=== PATIENT | male | born 1960 | race Caucasian/White ===

== ENCOUNTER 2016-11-11 06:19 | Emergency (ER) | payer MEDICAID ==
--- NOTE | 2016-11-11 06:58 | EDM.PDOC ---
ED HPI GENERAL MEDICAL PROBLEM - General Chief Complaint: General Stated Complaint: THROAT HURTS Time Seen by Provider: 11/11/16 06:40 Source of Information: Reports: Patient, RN, Significant Other - History of Present Illness INITIAL COMMENTS - FREE TEXT/NARRATIVE: 55 yr male presents with body aches, back ache, sore throat, some nausea at 2am and cough and steadily getting worse since 11pm. He was sick about 2 weeks ago and thought he was better, did go out fishing yesterday. Trying to drink extra fluids. Had Robitussin and cough drops. Had some ear pain. Onset: Today Onset Date: 11/10/16 Onset Time: 23:00 Improves with: Reports: Medication, Rest Associated Symptoms: Reports: Cough, Weakness Treatments WAITRESS: Reports: Other Medication(s) Back Pain Score (Numeric/FACES): 9 - Related Data Allergies Allergy/AdvReac Type Severity Reaction Status Date / Time No Known Allergies Allergy Verified 06/27/15 03:02 Home Meds: Home Meds Methocarbamol [Robaxin] 500 mg PO ASDIRECTED PRN 05/28/13 [History] Pantoprazole [Pantoprazole Sodium] 20 mg PO DAILY 05/28/13 [History] Sucralfate [Carafate] 1 gram PO DAILY 05/28/13 [History] Cyanocobalamin (Vitamin B-12) [Vitamin B-12] 2,500 mcg PO DAILY 05/19/15 [ History] Celecoxib [CeleBREX] 50 mg PO DAILY 07/01/15 [History] Hydrocodone/Acetaminophen [Hydrocodone-Acetaminophen 5-325] 5 - 325 mg PO ASDIRECTED PRN 07/01/15 [History] Ciprofloxacin [Take Home: Ciprofloxacin 500 MG, 2 Tab Pack] 500 mg PO BID [History] metroNIDAZOLE [Flagyl] 500 mg PO BID 02/09/16 [History] Past Medical History HEENT History: Reports: Allergic Rhinitis, Impaired Vision, Otitis Media Cardiovascular History: Reports: None Respiratory History: Reports: None, Bronchitis, Recurrent Other Respiratory History: presently sob Gastrointestinal History: Reports: Bowel Obstruction, Diverticulosis, GERD Genitourinary History: Reports: Renal Calculus, Other (See Below) Other Genitourinary History: frequent urination Musculoskeletal History: Reports: Back Pain, Chronic, Neck Pain, Chronic, Osteoarthritis Neurological History: Reports: None Psychiatric History: Reports: Anxiety, Depression Immunologic History: Reports: None Oncologic (Cancer) History: Reports: None - Infectious Disease History Infectious Disease History: Reports: Chicken Pox, Mumps - Past Surgical History Musculoskeletal Surgical History: Reports: Carpal Tunnel, Other (See Below) Social & Family History - Family History Family Medical History: Noncontributory - Tobacco Use Smoking Status *Q: Never Smoker Years of Tobacco use: 5 Packs/Tins Daily: 1 Used Tobacco, but Quit: No Month Tobacco Last Used: 15 years Second Hand Smoke Exposure: No - Alcohol Use Days Per Week of Alcohol Use: 5 Number of Drinks Per Day: 2 Total Drinks Per Week: 10 - Recreational Drug Use Recreational Drug Use: Yes Drug Use in Last 12 Months: Yes Recreational Drug Type: Reports: Marijuana/Hashish Recreational Drug Use Frequency: Weekly ED ROS GENERAL - Review of Systems Review Of Systems: See Below Constitutional: Reports: Weakness, Fatigue Respiratory: Reports: Cough Cardiovascular: Reports: Lightheadedness GI/Abdominal: Reports: Nausea Musculoskeletal: Reports: Back Pain ED EXAM, GENERAL - Physical Exam Exam: See Below Exam Limited By: No Limitations General Appearance: Alert, WD/WN, No Apparent Distress Throat/Mouth: Normal Inspection Head: Normocephalic Neck: Normal Inspection Respiratory/Chest: No Respiratory Distress, Lungs Clear, Normal Breath Sounds Cardiovascular: Regular Rate, Rhythm GI/Abdominal: Soft, No Distention Extremities: Other (ambulatory) Neurological: Alert, Oriented, Normal Cognition Skin Exam: Warm, Dry, Intact Course - Vital Signs Last Recorded V/S: Last Vital Signs Temp 97.9 F 11/11/16 07:16 Pulse 73 11/11/16 07:16 Resp 16 11/11/16 07:16 BP 132/87 11/11/16 07:16 Pulse Ox 99 11/11/16 07:16 - Orders/Labs/Meds Labs: Laboratory Tests 11/11/16 11/11/16 11/11/16 Range/Units 07:00 07:00 07:00 WBC 7.1 (4.0-11.0) K/uL RBC 4.83 (4.50-6.50) M/uL Hgb 15.9 (13.0-18.0) g/dL Hct 44.3 (40.0-54.0) % MCV 92 (76-96) fL MCH 32.9 H (27.0-32.0) pg MCHC 35.9 H (31.0-35.0) g/dL RDW 12.6 (11.0-16.0) % Plt Count 198 D (150-400) K/uL MPV 9.8 (6.0-10.0) fL Neut % (Auto) 67.5 (45.0-70.0) % Lymph % (Auto) 22.9 (20.0-40.0) % [place] % (Auto) 7.9 (3.0-10.0) % Eos % (Auto) 1.4 (1.0-5.0) % Baso % (Auto) 0.3 (0.0-0.5) % Neut # (Auto) 4.78 (2.00-7.50) K/uL Lymph # (Auto) 1.62 (1.50-4.00) K/uL [place] # (Auto) 0.56 (0.20-0.80) K/uL Eos # (Auto) 0.10 (0.04-0.40) K/uL Baso # (Auto) 0.02 (0.02-0.10) K/uL Sodium 139 (136-145) mmol/L Potassium 3.6 (3.5-5.1) mmol/L Chloride 104 (98-107) mmol/L Carbon Dioxide 23.5 D (21.0-32.0) mmol/L Anion Gap 15.1 H (5.0-15.0) mmol/L BUN 14 D (8-26) mg/dL Creatinine 0.79 (0.70-1.30) mg/dL Est Cr Clr Drug Dosing TNP Estimated GFR (MDRD) > 60 (>60) MLS/MIN BUN/Creatinine Ratio 17.7 (6-25) Glucose 106 H (74-100) mg/dL Calcium 9.3 (8.5-10.1) mg/dL Total Bilirubin 0.8 (0.0-1.0) mg/dL AST 19 (15-37) U/L ALT 30 (12-78) U/L Alkaline Phosphatase 67 (46-116) U/L Total Protein 7.3 (6.4-8.2) g/dL Albumin 4.0 (3.4-5.0) g/dL Globulin 3.3 (2.2-4.2) g/dL Albumin/Globulin Ratio 1.2 (0.8-2.0) Urine Color Urine Appearance (CLEAR) Urine pH (5.0-8.0) Ur Specific [place] (1.003-1.030) Urine Protein (NEGATIVE) mg/dL Urine Glucose (UA) (NEGATIVE) mg/dL Urine Ketones (NEGATIVE) mg/dL Urine Occult Blood (NEGATIVE) Urine Nitrite (NEGATIVE) Urine Bilirubin (NEGATIVE) Urine Urobilinogen (0.2-1.0) E.U./dL Ur Leukocyte Esterase (NEGATIVE) Urine RBC /HPF Urine WBC /HPF Monoscreen Negative (NEGATIVE) 11/11/16 Range/Units 07:00 WBC (4.0-11.0) K/uL RBC (4.50-6.50) M/uL Hgb (13.0-18.0) g/dL Hct (40.0-54.0) % MCV (76-96) fL MCH (27.0-32.0) pg MCHC (31.0-35.0) g/dL RDW (11.0-16.0) % Plt Count (150-400) K/uL MPV (6.0-10.0) fL Neut % (Auto) (45.0-70.0) % Lymph % (Auto) (20.0-40.0) % [place] % (Auto) (3.0-10.0) % Eos % (Auto) (1.0-5.0) % Baso % (Auto) (0.0-0.5) % Neut # (Auto) (2.00-7.50) K/uL Lymph # (Auto) (1.50-4.00) K/uL [place] # (Auto) (0.20-0.80) K/uL Eos # (Auto) (0.04-0.40) K/uL Baso # (Auto) (0.02-0.10) K/uL Sodium (136-145) mmol/L Potassium (3.5-5.1) mmol/L Chloride (98-107) mmol/L Carbon Dioxide (21.0-32.0) mmol/L Anion Gap (5.0-15.0) mmol/L BUN (8-26) mg/dL Creatinine (0.70-1.30) mg/dL Est Cr Clr Drug Dosing Estimated GFR (MDRD) (>60) MLS/MIN BUN/Creatinine Ratio (6-25) Glucose (74-100) mg/dL Calcium (8.5-10.1) mg/dL Total Bilirubin (0.0-1.0) mg/dL AST (15-37) U/L ALT (12-78) U/L Alkaline Phosphatase (46-116) U/L Total Protein (6.4-8.2) g/dL Albumin (3.4-5.0) g/dL Globulin (2.2-4.2) g/dL Albumin/Globulin Ratio (0.8-2.0) Urine Color Yellow Urine Appearance Clear (CLEAR) Urine pH 7.0 (5.0-8.0) Ur Specific [place] 1.020 (1.003-1.030) Urine Protein Negative (NEGATIVE) mg/dL Urine Glucose (UA) Negative (NEGATIVE) mg/dL Urine Ketones Negative (NEGATIVE) mg/dL Urine Occult Blood Negative (NEGATIVE) Urine Nitrite Negative (NEGATIVE) Urine Bilirubin Negative (NEGATIVE) Urine Urobilinogen 0.2 (0.2-1.0) E.U./dL Ur Leukocyte Esterase Negative (NEGATIVE) Urine RBC Not seen /HPF Urine WBC 0-5 H /HPF Monoscreen (NEGATIVE) Meds: Medications Discontinued Medications Generic Name Dose Route Start Last Admin Trade Name [place] PRN Reason Stop Dose Admin Tramadol HCl Confirm 11/11/16 07:11 11/11/16 07:10 Ultram Administered 11/11/16 07:12 50 mg Dose Administration 50 mg .ROUTE .STK-MED ONE - Re-Assessments/Exams Free Text/Narrative Re-Assessment/Exam: 11/11/16 08:11 Lab results negative for [place], strep and influenza. Rest today and increase fluids. Continue medications as at home. Continue with Robitussen for cough. Pt to be off work today. Rx to be off work. Departure - Departure Time of Disposition: 08:10 Disposition: Home, Self-Care 01 Condition: Good Clinical Impression: Viral pharyngitis - Discharge Information Instructions: Low Back Sprain With Rehab-Sports[facility], Cough, Adult, Pharyngitis, [id number] Referrals: PCP,None [Primary Care Provider] - Forms: ED Department Discharge Care Plan Goals: Get plenty of rest and drink plenty of fluids. Return to clinic if symptoms don' t improve in the next couple of days.
[2016-11-11 06:59] VITALS: BP 132/87
[2016-11-11] MEDS ORDERED: traMADol 50 MG Tab ONE (07:11)
== END 2016-11-11 08:16 | disposition home or self-care (01) ==
LOC: LB.ED 06:19
DX: J02.8 Acute pharyngitis due to other specified organisms (principal); B97.89 Other viral agents as the cause of diseases classified elsewhere; K21.9 Gastro-esophageal reflux disease without esophagitis; F32.9 Major depressive disorder, single episode, unspecified; M19.90 Unspecified osteoarthritis, unspecified site; Z87.442 Personal history of urinary calculi; Z98.890 Other specified postprocedural states; Z79.899 Other long term (current) drug therapy
CPT/HCPCS: 36415; 80053; 81001; 85025; 86308; 87430; 87804; 99283; A9270

== ENCOUNTER 2017-04-06 11:39 | Emergency (ER) | payer MEDICAID | END 2017-04-06 11:50 | disposition other institution (70) | LOC: LB.ED 11:39 | DX: Z13.9 Encounter for screening, unspecified (principal) ==

== ENCOUNTER 2018-05-19 10:47 | Day surgery (SDC) | payer OTHER ==
[2018-05-19] MEDS: Sodium Chloride 0.9% 1,000 ML IV SCH (11:10)
[2018-05-19] MEDS ORDERED: Propofol 200 MG/20 ML SDV ONE (12:40)
[2018-05-19 14:18] VITALS: BP 126/63
--- NOTE | 2018-05-19 16:51 | OR ---
DATE OF OPERATION: 05/19/2018 PREOPERATIVE DIAGNOSIS: Bloating and early satiety. POSTOPERATIVE DIAGNOSIS: Bloating and early satiety. PROCEDURE: EGD with biopsy. ANESTHESIA: MAC. ESTIMATED BLOOD LOSS: Minimal. COMPLICATIONS: None. INDICATION FOR THE PROCEDURE: The patient is a 57-year-old male who has had a long history of early satiety and bloating. Recently, he has noticed increased belching. The patient does take pantoprazole and sucralfate daily. Last EGD was 2 to 3 years ago with no acute findings at that time. The patient is here today for repeat EGD. DESCRIPTION OF PROCEDURE: Informed consent was obtained from the patient. The patient was taken to the OR and placed on table in left lateral decubitus position. Monitored anesthesia care was administered. Esophagogastroscope was advanced through the mouth and to the level of the second portion of the duodenum. The second portion of the duodenum was normal. Duodenal bulb did have some mild inflammation. The gastric antrum did show some mild gastritis. Biopsy was taken to check for H pylori. Retroflexion performed in the stomach was unremarkable. Gastric cardia was unremarkable. Remainder of the stomach was unremarkable. The scope was then withdrawn into the esophagus. Distal esophagus appeared normal. The scope was then withdrawn. FINDINGS: Mild gastritis and duodenitis. RECOMMENDATIONS: Would recommend continued medical management. Will follow up on biopsies for H pylori. SYLVIA/ERIS /[id number]
== END 2018-05-19 13:50 | disposition home or self-care (01) ==
LOC: LB.SDS 10:47
PROVIDERS: ATTEND Surgery
DX: K29.70 Gastritis, unspecified, without bleeding (principal); K29.80 Duodenitis without bleeding; K31.89 Other diseases of stomach and duodenum; K21.9 Gastro-esophageal reflux disease without esophagitis; Z79.899 Other long term (current) drug therapy
CPT/HCPCS: 43239; 43246; 88305; J2704; J7030

== ENCOUNTER → 2019-01-24 | Outpatient (CLI) | payer OTHER ==
--- NOTE | 2019-01-25 07:40 | CR ---
Date of Service: 01/24/19 Clinical Data: Pain in left foot LEFT FOOT: No acute fracture or dislocation. There are mild osteoarthritic changes involving multiple joints. No lytic or blastic bone lesions. [id number] [facility]
== END ==
LOC: LB.CLINIC 10:15 → LB.DI 15:01
PROVIDERS: ATTEND Family Medicine
DX: M79.672 Pain in left foot (principal); M19.072 Primary osteoarthritis, left ankle and foot
CPT/HCPCS: 73630-LT

== ENCOUNTER 2022-11-19 17:27 | Emergency (ER) | payer BC ==
[2022-11-19] MEDS ORDERED: Morphine 4 MG/ML VIAL IM ONE (17:41)
[2022-11-19] MEDS ORDERED: Ketorolac 60 MG/2 ML SDV IM ONE (18:21)
[2022-11-19] MEDS ORDERED: Ketorolac 60 MG/2 ML SDV ONE (18:21)
[2022-11-19] MEDS ORDERED: Bacitracin Oint 1 GM U/D Packet TOP ONE (18:26)
[2022-11-19] MEDS ORDERED: Ibuprofen 400 MG Tab ONE (19:30)
[2022-11-19] MEDS ORDERED: Acetaminophen/HYDROcodone 325-5 MG Tab ONE (19:30)
[2022-11-19 21:05] VITALS: BP 142/85; PULSE 67
== END 2022-11-19 19:40 | disposition home or self-care (01) ==
LOC: LB.ED 17:27
DX: S52.531A Colles' fracture of right radius, initial encounter for closed fracture (principal); K21.9 Gastro-esophageal reflux disease without esophagitis; Z87.891 Personal history of nicotine dependence; Z79.899 Other long term (current) drug therapy; W18.30XA Fall on same level, unspecified, initial encounter
CPT/HCPCS: 73110-RT; 96372; 99283; A9270-GY; J1885; J2270

== ENCOUNTER 2023-12-19 16:59 | Emergency (ER) | payer MEDICARE ==
[2023-12-19 17:56] LABS: BASOPHILS ABSOLUTE AUTO 0.02 K/uL (0.02-0.10); BASOPHILS PERCENT AUTO 0.3 % (0.0-0.5); EOSINOPHILS ABSOLUTE AUTO 0.15 K/uL (0.04-0.40); EOSINOPHILS PERCENT AUTO 2.3 % (1.0-5.0); HEMATOCRIT 43.3 % (40.0-54.0); HEMOGLOBIN 14.9 g/dL (13.0-18.0); LYMPHOCYTES ABSOLUTE AUTO 2.14 K/uL (1.50-4.00); LYMPHOCYTES PERCENT AUTO 32.9 % (20.0-40.0); MEAN CORPUSCULAR HEMOGLOBIN 33.1 pg (27.0-32.0); MEAN CORPUSCULAR HGB CONC 34.4 g/dL (31.0-35.0); MEAN CORPUSCULAR VOLUME 96 fL (76-96); MEAN PLATELET VOLUME 9.9 fL (6.0-10.0); MONOCYTES ABSOLUTE AUTO 0.65 K/uL (0.20-0.80); NEUTROPHILS ABSOLUTE AUTO 3.54 K/uL (2.00-7.50); NEUTROPHILS PERCENT AUTO 54.5 % (45.0-70.0); PLATELET COUNT,PLT 181 K/uL (150-400); RED CELL DISTRIBUTION WIDTH 12.7 % (11.0-16.0); WHITE BLOOD CELL COUNT,WBC 6.5 K/uL (4.0-11.0)
[2023-12-19 18:00] LABS: APPEARANCE,URINE CLEAR (CLEAR); COLOR,URINE YELLOW
[2023-12-19 18:01] LABS: BILIRUBIN,URINE NEGATIVE (NEGATIVE); GLUCOSE,URINE NEGATIVE (NEGATIVE); KETONES,URINE NEGATIVE (NEGATIVE); LEUKOCYTE ESTERASE,URINE NEGATIVE (NEGATIVE); NITRITE,URINE NEGATIVE (NEGATIVE); OCCULT BLOOD,URINE NEGATIVE (NEGATIVE); PROTEIN,URINE NEGATIVE (NEGATIVE); UROBILINOGEN,URINE 0.2 E.U./dL (0.2-1.0)
[2023-12-19 18:10] VITALS: BP 138/83; PULSE 65
[2023-12-19 18:18] LABS: A/G RATIO 1.4 (0.8-2.0); ALBUMIN 3.8 g/dL (3.4-5.0); ANION GAP 13.3 mmol/L (5.0-15.0); BILIRUBIN TOTAL 0.6 mg/dL (0.0-1.0); CALCIUM 8.6 mg/dL (8.5-10.1); CARBON DIOXIDE,CO2 26.4 mmol/L (21.0-32.0); CREATININE 0.81 mg/dL (0.70-1.30); EST CRCL DRUG DOSING (CG) 88.41 mL/min; POTASSIUM,K 3.7 mmol/L (3.5-5.1); PROTEIN TOTAL,TP 6.6 g/dL (6.4-8.2)
[2023-12-19] MEDS ORDERED: Sodium Chloride 0.9% 10 ML Syringe FLUSH PRN (18:18)
[2023-12-19 18:24] LABS: INFLUENZA A NAA NEGATIVE (NEGATIVE); INFLUENZA B NAA NEGATIVE (NEGATIVE); RESPIRATORY SYNCYTIAL VIR NAA NEGATIVE (NEGATIVE)
[2023-12-19 18:27] LABS: CORONAVIRUS COVID-19 NAA NEGATIVE (NEGATIVE)
== END 2023-12-19 18:45 | disposition home or self-care (01) ==
LOC: LB.ED 16:59
DX: M54.50 Low back pain, unspecified (principal); Z79.899 Other long term (current) drug therapy
CPT/HCPCS: 0241U; 36415; 80053; 81003; 85025; 99283

== ENCOUNTER 2024-06-06 15:03 | Emergency (ER) | payer MEDICARE ==
[2024-06-06] MEDS ORDERED: Sodium Chloride 0.9% 10 ML Syringe FLUSH PRN (15:27)
[2024-06-06] MEDS: Ketorolac 15 MG/ML SDV IM ONE (15:39)
[2024-06-06 15:44] LABS: BASOPHILS ABSOLUTE AUTO 0.02 K/uL (0.02-0.10); BASOPHILS PERCENT AUTO 0.3 % (0.0-0.5); EOSINOPHILS ABSOLUTE AUTO 0.13 K/uL (0.04-0.40); EOSINOPHILS PERCENT AUTO 2.2 % (1.0-5.0); HEMATOCRIT 44.3 % (40.0-54.0); HEMOGLOBIN 15.4 g/dL (13.0-18.0); LYMPHOCYTES ABSOLUTE AUTO 1.94 K/uL (1.50-4.00); LYMPHOCYTES PERCENT AUTO 32.5 % (20.0-40.0); MEAN CORPUSCULAR HEMOGLOBIN 33.3 pg (27.0-32.0); MEAN CORPUSCULAR HGB CONC 34.8 g/dL (31.0-35.0); MEAN CORPUSCULAR VOLUME 96 fL (76-96); MEAN PLATELET VOLUME 9.6 fL (6.0-10.0); MONOCYTES ABSOLUTE AUTO 0.69 K/uL (0.20-0.80); MONOCYTES PERCENT AUTO 11.6 % (3.0-10.0); NEUTROPHILS ABSOLUTE AUTO 3.19 K/uL (2.00-7.50); NEUTROPHILS PERCENT AUTO 53.4 % (45.0-70.0); PLATELET COUNT,PLT 197 K/uL (150-400); RED BLOOD CELL COUNT 4.63 M/uL (4.50-6.50); RED CELL DISTRIBUTION WIDTH 12.7 % (11.0-16.0)
[2024-06-06 16:12] LABS: A/G RATIO 1.3 (0.8-2.0); ALBUMIN 3.8 g/dL (3.4-5.0); ANION GAP 11.2 mmol/L (5.0-15.0); BILIRUBIN TOTAL 0.6 mg/dL (0.0-1.0); BUN/CREATININE RATIO 14.8 (6-25); CARBON DIOXIDE,CO2 27.6 mmol/L (21.0-32.0); CREATININE 0.81 mg/dL (0.70-1.30); EST CRCL DRUG DOSING (CG) 87.27 mL/min; POTASSIUM,K 3.8 mmol/L (3.5-5.1); PROTEIN TOTAL,TP 6.8 g/dL (6.4-8.2); TROPONIN I HIGH SENSITIVITY 7.7 pg/ml (<=60.4)
[2024-06-06 16:48] VITALS: BP 136/88; PULSE 76
== END 2024-06-06 16:39 | disposition home or self-care (01) ==
LOC: LB.ED 15:03
DX: M25.512 Pain in left shoulder (principal); G89.29 Other chronic pain; Z79.899 Other long term (current) drug therapy
CPT/HCPCS: 36415; 71045; 80053; 83735; 84484; 85025; 85379; 93005; 93010; 96372; 99283; 99285; J1885